=== PATIENT | female | born 1990 | race Caucasian/White ===

== ENCOUNTER 2020-04-02 23:39 | Emergency (ER) | payer OTHER ==
[~2020-04-02] VITALS: Ht 157.5 cm; Wt 127.0 kg
[~2020-04-02 23:39] MED LIST: DEXT20TA2 PO; MILN50TA PO; ONDA4TAB7 PO; PROM25TA10 PO; depo INJ
--- NOTE | 2020-04-03 00:25 | PHYS DOC ---
Past History Past Medical History: Anxiety, Depression, Diabetes, Fibromyalgia, Other Additional Past Medical Histor: high heart rate Past Surgical History: Hysterectomy, Other Additional Past Surgical Histo: hernia with mesh Smoking: Cigarettes Additional Smoking Information: smokes up to 1 pack a day for the past 5 years Alcohol Use: Occasionally Drug Use: None General Adult EDM: Chief Complaint: LACERATION/AVULSION HPI: HPI: Patient is a 29 year old female who presents with left index finger laceration. Pt was cutting a pool noodle with a new X-acto knife today while crafting and accidentally sliced her left index finger. She noticed a lot of blood squirting from the finger and ran it under water to clean it before wrapping the finger in a towel. She is able to fully move her fingers. She currently rates her pain as 7/10. Her last tetanus vaccine was 7 years ago. Denies fever, shortness of breath, cough, or sick contacts. Review of Systems: Review of Systems: Eyes: Denies redness or eye pain HENT: Denies nasal congestion or sore throat Respiratory: Denies cough or shortness of breath Cardiovascular: Denies chest pain or palpitations GI: Denies abdominal pain, nausea, or vomiting : Denies dysuria or hematuria Musculoskeletal: Denies back pain or joint pain Integument: + left index finger laceration, Denies rash. Neurologic: Denies headache, focal weakness or sensory changes Complete systems were reviewed and found to be within normal limits, except as documented in this note. Family History: Family History: Non-contributory Current Medications: Current Meds: Current Medications Medications (Trade) Dose Ordered Sig/William Start Time Stop Time Status Last Admin Dose Admin Diphtheria/ Pertussis/Tetanus Vacc (ADACEL TDap SYRINGE) 0.5 ml ONCE ONCE 04/03/20 00:30 04/03/20 00:31 UNV Lidocaine/ Epinephrine (Xylocaine 2%-Epi 1:100,000) 20 ml 1X ONCE 04/03/20 00:30 04/03/20 00:31 UNV Neomycin/ Polymyxin/ Bacitracin (Triple Antibiotic Ointment) 1 pkt 1X ONCE 04/03/20 00:30 04/03/20 00:31 Allergies: Allergies: Allergies Coded Allergies Type Severity Reaction Last Updated Verified nalbuphine HCl Allergy Intermediate distonic reaction 3/15/14 Yes Physical Exam: PE: Constitutional: Well developed, well nourished, no acute distress, non-toxic [place] ear[place] HENT: Normocephalic, atraumatic Eyes: Conjunctiva normal, no discharge Neck: Normal range of motion, no tenderness, supple Skin: Warm, dry, no erythema, no rash, 2cm laceration on palmar surface of left index finger Extremities: No tenderness, ROM intact of fingers b/l, no edema Neurologic: Alert and oriented X 3, no focal deficits noted Psychologic: Affect normal, judgment normal Current Patient Data: Vital Signs: Vital Signs Date Time Temp Pulse Resp B/P (MAP) Pulse Ox O2 Delivery O2 Flow Rate FiO2 04/02/20 23:39 98.6 104 18 117/72 (87) 97 Room Air Course & Med Decision Making: Course & Med Decision Making Pt is a 29 year old female who presents with finger laceration of her left index finger. Finger retains full ROM, neurovascularly intact. Due to wound edges gapping with finger flexion requiring repair. Digital block placed at least 15 min prior to suturing. Laceration irrigated and closed with 5-0 nylon x5 stitches. Antibiotic ointment applied on finger and wrapped in splint for protection. Tetanus vaccination given. Patient stable for discharge home with outpatient follow-up with PCP. Discussed findings and plan with patient, who acknowledges understanding and agreement. Daren Disclaimer: Daren Disclaimer: This electronic medical record was generated, in whole or in part, using a voice recognition dictation system. Splinting Splinting : Location: Left index finger Pre-Made Type: metal (aliuminum finger splint) Pre-Proc Neuro Vasc Exam: normal Post-Proc Neuro Vasc Exam: normal, unchanged from pre-exam Laceration/Wound Repair Laceration/Wound Repair : Wound Location: upper extremity (left index finger) Wound's Depth, Shape: linear Wound Length (cm): 2 Wound Explored: clean Irrigated w/ Saline (ccs): 200 Anesthesia: Lidocaine w/ Epi (2%) Volume Anesthetic (ccs): 2 Wound Debrided: minimal Wound Repaired With: sutures Suture Size/Type: 5:0, nylon Number of Sutures: 5 Sterile Dressing Applied?: Yes Splint Applied?: Yes Progress Verbal consent obtained. Time out performed. Hand hygiene utilized. Wound cleaned with ChloraPrep. Digital block (4 nerve) anesthesia obtained via a 25- gauge hypodermic needle with total of 2 mL's of lidocaine 2% with epinephrine. Copious irrigation performed. Wound well approximated with 5x 5-0 nylon simple interrupted sutures. Patient tolerated procedure well and without difficulty. Empiric antibiotic ointment applied prior to sterile dressing. Departure Departure: Impression: Primary Impression: Finger laceration Qualified Codes: S61.211A - Laceration without foreign body of left index finger without damage to nail, initial encounter Disposition: 01 DC HOME SELF CARE/HOMELESS Condition: STABLE Referrals: LEÓN SLATER MD (PCP) Patient Instructions: Laceration Care, Adult, [id number] Additional Instructions: Do not soak your wound. You may shower. Clean wound daily with soap and water. Change dressing 2 times daily. Use over the counter antibiotic ointment with each dressing change. Sutures need to be removed in 7-10 days. Present to your family doctor or local urgent care for removal. You may also present to the ED but it will be an additional visit/charge. After suture removal you may use Vitamin E ointment to soften the wound and prevent scarring. Use over the counter Tylenol and/or Ibuprofen for pain or discomfort. Use finger splint for protection of sutures until removed. May take off to clean and redress wound or to shower. MYRA MATHIS DO Apr 03, 2020 00:25
[2020-04-03] MEDS: LIDOCAINE 2%/EPI 1:100,000 20 ML VIAL. IJ ONE (02:04)
[2020-04-03] MEDS: DIPH,PERTUSS(ACELL),TET VAC/PF 0.5 ML SYRINGE. VAX IM ONE (02:04)
[2020-04-03] MEDS: NEOMY/BACITR/POLYMYXIN OINT PACKET. TP ONE (02:05)
[2020-04-03 02:25] VITALS: BP 124/80
== END 2020-04-03 02:25 | disposition home or self-care (01) ==
LOC: ER 23:39
DX: S61.211A Laceration without foreign body of left index finger without damage to nail, initial encounter (principal); E11.9 Type 2 diabetes mellitus without complications; F17.210 Nicotine dependence, cigarettes, uncomplicated; Z88.8 Allergy status to other drugs, medicaments and biological substances; Y28.1XXA Contact with knife, undetermined intent, initial encounter; Y93.D9 Activity, other involving arts and handcrafts; Y92.89 Other specified places as the place of occurrence of the external cause; Y99.8 Other external cause status
CPT/HCPCS: 12001; 90471; 90715; 99283

== ENCOUNTER 2020-10-07 22:56 | Emergency (ER) | payer OTHER ==
[~2020-10-07] VITALS: Ht 157.5 cm; Wt 127.0 kg
[2020-10-07 23:20] VITALS: BP 125/75
--- NOTE | 2020-10-08 00:25 | PHYS DOC ---
Past History Past Medical History: Anxiety, Depression, Diabetes, Fibromyalgia, Other Additional Past Medical Histor: high heart rate Past Surgical History: Hysterectomy, Other Additional Past Surgical Histo: hernia with mesh Smoking: Cigarettes Alcohol Use: Occasionally Drug Use: None Adult General Chief Complaint Chief Complaint: KNEE INJURY HPI HPI Patient is a 30-year-old female presents with left knee pain. States that she twisted it/hurt it back in July but has been able to walk. States it did get better but felt like she twisted it earlier in the day as well and felt a pop. States that pain is 5 out of 10, dull and achy in nature with no other injuries. States she is able to walk but it causes discomfort. Review of Systems Review of Systems Review of systems otherwise unremarkable except noted in HPI Allergies Allergies Allergies Coded Allergies Type Severity Reaction Last Updated Verified nalbuphine HCl Adverse Reaction Intermediate dystonic reaction 10/07/20 Yes Physical Exam Physical Exam Constitutional: Well developed, well nourished, no acute distress, non-toxic appearance. [] HENT: Normocephalic, atraumatic, Neck: Normal range of motion, no tenderness, supple, no stridor. [] Cardiovascular:Heart rate regular rhythm, no murmur [] Lungs & Thorax: Bilateral breath sounds clear to auscultation [] Back: No tenderness, Extremities: Mild left knee tenderness and with no obvious deformities, bruising or effusions. Neurovascular exam intact Neurologic: Alert and oriented X 3, normal motor function, normal sensory function, no focal deficits noted. [] Psychologic: Affect normal, judgement normal, mood normal. [] Current Patient Data Vital Signs Vital Signs Date Time Temp Pulse Resp B/P (MAP) Pulse Ox O2 Delivery O2 Flow Rate FiO2 10/07/20 23:20 98.2 114 16 125/75 (92) 94 Room Air EKG EKG [] Radiology/Procedures Radiology/Procedures [] Heart Score C/O Chest Pain: No Risk Factors: Risk Factors: DM, Current or recent (<one month) smoker, HTN, HLP, family history of CAD, obesity. Risk Scores: Risk Factors: DM, Current or recent (<one month) smoker, HTN, HLP, family history of CAD, obesity. Course & Med Decision Making Course & Med Decision Making Patient is a 30-year-old female who presents with left knee pain for 2 months Vital signs notable for sinus tachycardia. Physical exam noted above. Patient given Tylenol, ibuprofen and ice. Imaging with no acute osseous abnormalities. Discussed pain management at home. Advised to follow-up with primary care physician. Return precautions to the ED. Patient grateful, verbalized understanding and agreed with plan of discharge. Dragon Disclaimer Dragon Disclaimer This electronic medical record was generated, in whole or in part, using a voice recognition dictation system. Departure Departure: Impression: Primary Impression: Knee pain Disposition: HOME / SELF CARE / HOMELESS Condition: GOOD Referrals: LEÓN SLATER MD (PCP) Patient Instructions: Knee Pain, RICE - Routine Care for Injuries Additional Instructions: Thank you for coming into the emergency department tonight and allowing us to take care of you. Please continue Tylenol, ibuprofen and ice as needed. Please follow-up with your primary care physician when you can to schedule a follow-up visit. Please come back to the ED with new or concerning symptoms as ALEXANDRIA Francis MD Oct 08, 2020 00:25
[2020-10-08] MEDS ORDERED: ACETAMINOPHEN 500 MG TABLET PO ONE (00:30)
[2020-10-08] MEDS ORDERED: IBUPROFEN 600 MG TABLET. PO ONE (00:30)
[2020-10-08] MEDS ORDERED: HYDROcodone/APAP 5/325MG 1 TAB TABLET PO ONE (01:15)
--- NOTE | 2020-10-08 06:42 | RAD ---
Left knee 3 views: Reason for examination: Injured with left knee pain. No acute fracture or dislocation is seen. The bone density is normal. No abnormal periosteal reaction is seen. Joint spaces are maintained. No joint effusion is evident. IMPRESSION: No acute bony abnormality seen at the left knee. Electronically signed by: Ashtyn Jordan MD (10/08/2020 6:39 AM) [facility]
== END 2020-10-08 01:23 | disposition home or self-care (01) ==
LOC: ER 22:56
DX: M25.562 Pain in left knee (principal); F41.9 Anxiety disorder, unspecified; F32.9 Major depressive disorder, single episode, unspecified; E11.9 Type 2 diabetes mellitus without complications; M79.7 Fibromyalgia; F17.210 Nicotine dependence, cigarettes, uncomplicated; Z88.8 Allergy status to other drugs, medicaments and biological substances; X50.1XXA Overexertion from prolonged static or awkward postures, initial encounter; Y93.89 Activity, other specified; Y92.89 Other specified places as the place of occurrence of the external cause; Y99.8 Other external cause status
CPT/HCPCS: 73562; 99284